=== PATIENT | male | born 1990 | race Caucasian/White ===

== ENCOUNTER → 2022-08-18 | Outpatient (CLI) | payer BC ==
[2022-08-18 13:02] LABS: ALBUMIN 4.4 g/dL (3.5-5.0); POTASSIUM 4.1 mmol/L (3.5-5.1); SODIUM 137 mmol/L (136-145)
[2022-08-18 13:04] LABS: CALCIUM 10.2 mg/dL (8.3-10.5)
[2022-08-18 13:05] LABS: GLUCOSE 97 mg/dL (75-110); TOTAL PROTEIN 8.5 g/dL (6.4-8.3)
[2022-08-18 13:06] LABS: CARBON DIOXIDE 24 mmol/L (22-29); TOTAL BILIRUBIN 0.8 mg/dL (0.2-1.2)
[2022-08-18 13:10] LABS: AST-SGOT 22 U/L (5-34)
[2022-08-18 13:11] LABS: ALT/SGPT 31 U/L (0-55)
[2022-08-18 13:23] LABS: TROPONIN-I < 0.030 ng/mL (<0.030)
== END ==
LOC: LAB 12:42
PROVIDERS: Family Medicine
DX: R07.9 Chest pain, unspecified (principal)